=== PATIENT | male | born 1990 | race Hispanic/Latino ===

== ENCOUNTER 2020-05-31 11:37 | Outpatient (CLI) | payer BC ==
--- NOTE | 2020-05-31 12:08 | RAD ---
Exam:4 views right knee HISTORY: Pain COMPARISON: None FINDINGS: Preserved joint spaces. No joint effusion. No malalignment or fracture IMPRESSION: No fracture or significant degenerative change.
== END 2020-05-31 11:38 | disposition home or self-care (01) ==
LOC: SCSRAD 11:37
PROVIDERS: ATTEND Family Medicine
DX: M25.561 Pain in right knee (principal)

== ENCOUNTER 2024-10-07 16:24 | Outpatient (CLI) | payer BC | END 2024-10-07 16:25 | disposition home or self-care (01) | LOC: SCSRAD 16:24 | PROVIDERS: ATTEND Student in an Organized Health Care Education/Training Program | DX: M76.62 Achilles tendinitis, left leg (principal); M25.572 Pain in left ankle and joints of left foot; M77.32 Calcaneal spur, left foot ==